=== PATIENT | male | born 1975 | race Caucasian/White ===

== ENCOUNTER 2018-08-15 19:42 | Emergency (ER) | payer OTHER ==
[~2018-08-15] VITALS: Ht 175.3 cm; Wt 90.7 kg
== END 2018-08-15 23:17 | disposition home or self-care (01) ==
LOC: ER 19:42
DX: S30.812A Abrasion of penis, initial encounter (principal); Y84.6 Urinary catheterization as the cause of abnormal reaction of the patient, or of later complication, without mention of misadventure at the time of the procedure; Y73.1 Therapeutic (nonsurgical) and rehabilitative gastroenterology and urology devices associated with adverse incidents; Y92.89 Other specified places as the place of occurrence of the external cause; Y93.89 Activity, other specified; Y99.8 Other external cause status

== ENCOUNTER 2022-02-07 09:11 | Inpatient (IN) | payer OTHER ==
[~2022-02-07] VITALS: Ht 172.7 cm; Wt 95.3 kg
--- NOTE | 2022-02-07 09:14 | NUR ---
SE RECIBE PTE ALERTA Y ORIENTADO X3,EN AMBULANCIA REFIEREN PARAMEDICOS REFIEREN QUE EL PTE TIENE JOSEPHINE ULCERA SACRAL INFECTADA,REFIEREN QUE TIENE INFECCION DE ORINA TIENE FOLLEY, EL PTE ES CUADRAPLEJICO.
--- NOTE | 2022-02-07 09:46 | NUR ---
SE ORIENTA PTE SOBRE EL TRTAMINETO ORDENAOD POR LA COURTNEY DOHERTY PTE ALERTA Y ORIENTADO POR 3 RN AGUEDA REALIZA MUESTRAS LABOROTIRO Y NOTIFICA A SKIN TEAM PTE SE MANTIENE EN OBSERVACION Y BAJO TRATAMIENTO.
--- NOTE | 2022-02-07 09:49 | NUR ---
SE NOTIFICA A SECRETARIA CONSULTA CON SKIN TEAM.
--- NOTE | 2022-02-07 15:55 | NUR ---
SE RECIBE PTE DEL TURNOA ANTERIOR, ALERTA Y ORIENTADO EN DAILY FAROOQ ESFERAS, UBICADO EN DELTA NIVEL MAS BAJO, DOWNS DE IDENTIFICACION Y BARANDAS ELEVADAS POR PRECAUCION. SE OBSERVA CON BUEN PATRON RESPIRATORIO Y PIEL TIBIA AL TACTO. S/L EN ANTEBRAZO LT ANGIO #20 PATENTE Y WHITNEY DE EDEMA O ERITEMA. PTE CON UP SE OBSERVA CON 400ML APROXIMADAMENTE DE ORINA COLOR AMARILLO JAMIA. PENDIEMTE EVALUACION DE SKIN TEAM Y RE EVALUACION MEDICA.
[2022-02-08] MEDS ORDERED: VITAMIN D3125 MC1 (11:52)
[2022-02-08] MEDS ORDERED: OXYC1TAB9 (11:52)
== END 2022-02-17 19:12 | disposition home or self-care (01) | DRG 593 ==
LOC: ER 09:11 → SEC-K 20:43 → SURH 02-09 04:58
PROVIDERS: ADMIT Internal Medicine; ATTEND Internal Medicine
PROC: BR2CYZZ Computerized Tomography (CT Scan) of Pelvis using Other Contrast (ICD-10-PCS; 2022-02-08)
PROC: 02HV33Z Insertion of Infusion Device into Superior Vena Cava, Percutaneous Approach (ICD-10-PCS; principal; 2022-02-09)
PROC: CW1NLZZ Planar Nuclear Medicine Imaging of Whole Body using Gallium 67 (Ga-67) (ICD-10-PCS; 2022-02-11)
DX: L89.153 Pressure ulcer of sacral region, stage 3 (principal); L02.31 Cutaneous abscess of buttock; L98.428 Non-pressure chronic ulcer of back with other specified severity; N39.0 Urinary tract infection, site not specified; G82.20 Paraplegia, unspecified; L08.89 Other specified local infections of the skin and subcutaneous tissue; B96.29 Other Escherichia coli [E. coli] as the cause of diseases classified elsewhere; B95.61 Methicillin susceptible Staphylococcus aureus infection as the cause of diseases classified elsewhere; B96.20 Unspecified Escherichia coli [E. coli] as the cause of diseases classified elsewhere; Z20.822 Contact with and (suspected) exposure to COVID-19